=== PATIENT | female | born 1950 | race Caucasian/White ===

== ENCOUNTER 2016-04-30 10:35 | Day surgery (SDC) | payer OTHER ==
[~2016-04-30] VITALS: Ht 165.1 cm; Wt 76.3 kg
[2016-04-30] MEDS ORDERED: HCTZ 25MG TAB25 MG PO (11:22)
[2016-04-30] MEDS ORDERED: VITAMIN D1000 IU PO (11:22)
[2016-04-30] MEDS ORDERED: MICARDIS80 MG PO (11:23)
[2016-04-30] MEDS ORDERED: CELEBREX 200MG200 MG PO (11:23)
[2016-04-30] MEDS ORDERED: PROZAC 20MG20 MG PO (11:24)
[2016-04-30 11:32] VITALS: BP 125/96; PULSE 64; TEMP 99
[2016-04-30 13:10] VITALS: BP 114/68; PULSE 58
[2016-04-30 13:25] VITALS: BP 120/83; PULSE 53
[2016-04-30 14:04] VITALS: BP 111/71; PULSE 62
[2016-04-30 15:20] VITALS: BP 109/82; PULSE 63
== END 2016-04-30 13:30 | disposition home or self-care (01) ==
LOC: SDCO 10:35
DX: Z86.010 Personal history of colon polyps (principal); R19.5 Other fecal abnormalities; R19.7 Diarrhea, unspecified; K57.30 Diverticulosis of large intestine without perforation or abscess without bleeding; K64.1 Second degree hemorrhoids; I10 Essential (primary) hypertension
CPT/HCPCS: J2250; J3010; J7030